=== PATIENT | male | born 1995 | race Caucasian/White ===

== ENCOUNTER 2017-08-21 19:13 | Emergency (ER) | payer OTHER, BC ==
[2017-08-21 19:32] VITALS: BP 118/73; PULSE 86; RESP 16; TEMP 98.4; O2SAT 97
== END 2017-08-21 20:18 | disposition home or self-care (01) | DRG 605 ==
LOC: ED 19:13
DX: S61.211A Laceration without foreign body of left index finger without damage to nail, initial encounter (principal)
CPT/HCPCS: 73140; 99283; A6402